=== PATIENT | male | born 1945 | race African-American/Black ===

== ENCOUNTER 2016-08-11 22:01 | Inpatient (IN) | payer MEDICARE, BC ==
[~2016-08-11] VITALS: Ht 175.3 cm; Wt 81.0 kg
[2016-08-11] MEDS ORDERED: LORAZEPAM 0.5 MG TAB PO PRN (22:15)
[2016-08-11] MEDS ORDERED: SALINE FLUSH 10 ML FLUSH PRN (22:15)
[2016-08-11] MEDS ORDERED: DEXTROSE 50% SYRINGE 50 ML IV PRN (22:15)
[2016-08-11] MEDS ORDERED: ONDANSETRON 4 MG VIAL IV PRN (22:15)
[2016-08-11] MEDS ORDERED: NITROGLYCERIN SL 0.4 MG TAB SL PRN (22:15)
[2016-08-11] MEDS ORDERED: INSULIN DRIP 1 UNIT/ML 100 ML IV SCH (22:15)
[2016-08-12] MEDS ORDERED: OPTIRAY 350 100 ML VIAL HMH IV ONE (02:32)
[2016-08-12 03:00] VITALS: BP_SYST 144; RESP 18; TEMP 97.5; Ht 175.3 cm; Wt 81.0 kg
[2016-08-12] MEDS: SALINE FLUSH 10 ML FLUSH SCH ×4 (03:43→20:00)
[2016-08-12] MEDS ORDERED: hePARIN 20,000 UNITS in SODIUM CHLORIDE 0.9% 500 ML IV SCH (04:35)
[2016-08-12 04:36] VITALS: RESP 18
[2016-08-12] MEDS ORDERED: hePARIN in D5W (40 UNITS/ML) 500 ML IV SCH (04:55)
[2016-08-12] MEDS: SODIUM CHLORIDE 0.9% FLUSH BAG 500 ML IV SCH (06:00)
[2016-08-12] MEDS ORDERED: MISSING DOSE XX ONE (06:00)
[2016-08-12] MEDS: MDI-SPIRIVA 5 DOSES INH SCH (06:39)
[2016-08-12] MEDS: KAYEXOLATE 15 GM/60 ML BTL PO SCH ×2 (07:25→11:25)
[2016-08-12] MEDS ORDERED: humuLIN REG INSULIN IV PUSH ONE (07:25)
[2016-08-12] MEDS ORDERED: DEXTROSE 50% SYRINGE 50 ML IV ONE (07:25)
[2016-08-12] MEDS ORDERED: ASPIRIN 81 MG CHEW TAB PO SCH (08:00)
[2016-08-12 08:39] VITALS: BP_SYST 181; RESP 18; TEMP 97.7
[2016-08-12] MEDS: MULTIVITS/MINERALS (THERAGRAN M) TAB PO SCH (08:46)
[2016-08-12] MEDS: Aspirin 325 MG TAB PO SCH (08:50)
[2016-08-12] MEDS: ISOSORBIDE MONO 60 MG TAB PO SCH (08:50)
[2016-08-12] MEDS: BUMETANIDE 1 MG TAB PO SCH ×2 (08:50→20:46)
[2016-08-12] MEDS: RANOLAZINE ER 500 MG TAB PO SCH ×2 (08:50→20:47)
[2016-08-12] MEDS: CLOPIDOGREL 75 MG TAB PO SCH (08:50)
[2016-08-12] MEDS: ATENOLOL 25 MG TAB PO SCH ×2 (08:51→20:47)
[2016-08-12] MEDS: amLODIPine 10 MG TAB PO SCH (08:53)
[2016-08-12 10:38] VITALS: BP_SYST 153; RESP 20; TEMP 97.5
[2016-08-12] MEDS: NEB-BUDESONIDE 0.5 MG INH SCH ×2 (14:38→19:51)
[2016-08-12 15:04] VITALS: BP_SYST 108; RESP 18; TEMP 98.1
[2016-08-12] MEDS ORDERED: LORAZEPAM 0.5 MG TAB PO PRN (19:45)
[2016-08-12] MEDS ORDERED: SALINE FLUSH 10 ML FLUSH PRN (19:45)
[2016-08-12 20:13] VITALS: BP_SYST 103; RESP 18; TEMP 98.2
[2016-08-12] MEDS: ROSUVASTATIN 20 MG TAB PO SCH (20:47)
[2016-08-12] MEDS: PANTOPRAZOLE 40 MG TAB PO SCH (20:47)
[2016-08-12] MEDS ORDERED: TEMAZEPAM 7.5 MG CAP PO PRN (21:00)
[2016-08-12] MEDS ORDERED: TEMAZEPAM 15 MG CAP PO PRN (21:00)
[2016-08-12] MEDS ORDERED: LANSOPRAZOLE 30 MG PO SCH (21:00)
[2016-08-13] VITALS (13 sets, daily range): BP systolic 104–126; RESP 16–18; TEMP 97–98.8
[2016-08-13] MEDS: SODIUM CHLORIDE 0.9% FLUSH BAG 500 ML IV SCH ×2 (00:13→19:32)
[2016-08-13] MEDS ORDERED: SODIUM CHLORIDE 0.9% FLUSH BAG 500 ML IV SCH (06:00)
[2016-08-13] MEDS: MDI-SPIRIVA 5 DOSES INH SCH (07:00)
[2016-08-13] MEDS: NEB-BUDESONIDE 0.5 MG INH SCH ×2 (07:00→18:22)
[2016-08-13] MEDS: SALINE FLUSH 10 ML FLUSH SCH ×3 (08:24→20:47)
[2016-08-13] MEDS: Aspirin 325 MG TAB PO SCH (08:26)
[2016-08-13] MEDS: BUMETANIDE 1 MG TAB PO SCH ×2 (08:26→20:47)
[2016-08-13] MEDS: MULTIVITS/MINERALS (THERAGRAN M) TAB PO SCH (08:26)
[2016-08-13] MEDS: RANOLAZINE ER 500 MG TAB PO SCH ×2 (08:27→20:46)
[2016-08-13] MEDS: ATENOLOL 25 MG TAB PO SCH ×2 (08:27→20:47)
[2016-08-13] MEDS: ISOSORBIDE MONO 60 MG TAB PO SCH (08:28)
[2016-08-13] MEDS: amLODIPine 10 MG TAB PO SCH (08:28)
[2016-08-13] MEDS: CLOPIDOGREL 75 MG TAB PO SCH (08:28)
[2016-08-13] MEDS ORDERED: MIDAZOLAM 2 MG/2 ML INJ IV ONE (15:00)
[2016-08-13] MEDS ORDERED: SALINE FLUSH 10 ML FLUSH PRN (15:00)
[2016-08-13] MEDS ORDERED: ATROPINE 1 MG/10 ML SYRINGE IV PRN (15:00)
[2016-08-13] MEDS ORDERED: ONDANSETRON 4 MG VIAL IV PRN (15:00)
[2016-08-13] MEDS ORDERED: DEXTROSE 5% SALINE 0.45% 1,000 ML IV SCH (15:00)
[2016-08-13] MEDS ORDERED: MIDAZOLAM 2 MG/2 ML INJ IV PRN (15:00)
[2016-08-13] MEDS ORDERED: LIDOCAINE 2% 20 ML SUBQ ONE (15:00)
[2016-08-13] MEDS ORDERED: MORPHINE 2 MG/ML SYR IV ONE (15:00)
[2016-08-13] MEDS ORDERED: LIDOCAINE 2% 20 ML ONE (16:33)
[2016-08-13] MEDS ORDERED: MIDAZOLAM 2 MG/2 ML INJ ONE (16:33)
[2016-08-13] MEDS: PANTOPRAZOLE 40 MG TAB PO SCH (20:47)
[2016-08-13] MEDS: ROSUVASTATIN 20 MG TAB PO SCH (20:47)
[2016-08-14 03:10] VITALS: BP_SYST 126; RESP 16; TEMP 98.6
[2016-08-14] MEDS ORDERED: SODIUM CHLORIDE 0.9% FLUSH BAG 500 ML IV SCH (06:00)
[2016-08-14] MEDS: MDI-SPIRIVA 5 DOSES INH SCH (06:57)
[2016-08-14] MEDS: NEB-BUDESONIDE 0.5 MG INH SCH (06:57)
[2016-08-14 07:34] VITALS: BP_SYST 119; RESP 18; TEMP 98.6
[2016-08-14] MEDS: RANOLAZINE ER 500 MG TAB PO SCH (09:00)
[2016-08-14] MEDS ORDERED: ATENOLOL 50 MG TAB PO SCH (09:00)
[2016-08-14] MEDS: BUMETANIDE 1 MG TAB PO SCH (09:00)
[2016-08-14 09:38] VITALS: BP_SYST 120; RESP 18; TEMP 97.7
[2016-08-14 13:45] VITALS: BP_SYST 126; RESP 18; TEMP 97.5
[2016-08-14] MEDS: MULTIVITS/MINERALS (THERAGRAN M) TAB PO SCH (15:04)
[2016-08-14] MEDS: SALINE FLUSH 10 ML FLUSH SCH (15:04)
[2016-08-14] MEDS: Aspirin 325 MG TAB PO SCH (15:04)
[2016-08-14] MEDS: ISOSORBIDE MONO 60 MG TAB PO SCH (15:05)
[2016-08-14] MEDS: amLODIPine 10 MG TAB PO SCH (15:05)
[2016-08-14] MEDS: CLOPIDOGREL 75 MG TAB PO SCH (15:05)
[2016-08-14 16:19] VITALS: BP_SYST 126; RESP 18; TEMP 98.6
[2016-08-14] MEDS ORDERED: hePARIN 1,000 UNITS/ML (PORCINE) 10 ML ONE (22:46)
== END 2016-08-14 17:06 | disposition home or self-care (01) | DRG 280 ==
LOC: 4THE 08-12 02:31 → OBSVTOIN 08-12 18:02 → ENPENDDIS 08-12 18:02
PROVIDERS: ADMIT Internal Medicine; ATTEND Internal Medicine
PROC: 5A1D60Z (ICD-10-PCS; principal; 2016-08-12)
PROC: 4A023N7 Measurement of Cardiac Sampling and Pressure, Left Heart, Percutaneous Approach (ICD-10-PCS; 2016-08-12)
PROC: B2111ZZ Fluoroscopy of Multiple Coronary Arteries using Low Osmolar Contrast (ICD-10-PCS; 2016-08-12)
PROC: B2151ZZ Fluoroscopy of Left Heart using Low Osmolar Contrast (ICD-10-PCS; 2016-08-12)
DX: I21.4 Non-ST elevation (NSTEMI) myocardial infarction (principal); N18.6 End stage renal disease; I12.0 Hypertensive chronic kidney disease with stage 5 chronic kidney disease or end stage renal disease; D69.6 Thrombocytopenia, unspecified; E87.5 Hyperkalemia; Z99.2 Dependence on renal dialysis; J44.9 Chronic obstructive pulmonary disease, unspecified; D63.1 Anemia in chronic kidney disease; K21.9 Gastro-esophageal reflux disease without esophagitis; I25.10 Atherosclerotic heart disease of native coronary artery without angina pectoris; E78.5 Hyperlipidemia, unspecified; Z79.01 Long term (current) use of anticoagulants; Z79.82 Long term (current) use of aspirin; E11.9 Type 2 diabetes mellitus without complications
CPT/HCPCS: 71260; 80053; 80061; 80069; 82550; 82947; 83880; 84484; 85025; 85379; 85610; 85730; 93005; 93306; 93458; 94640; 94799; 99219; 99232; 99233